=== PATIENT | female | born 1975 | race Caucasian/White ===

== ENCOUNTER 2019-04-24 07:21 | Emergency (ER) | payer OTHER ==
[~2019-04-24] VITALS: Ht 175.3 cm; Wt 111.1 kg
--- OUTSIDE RECORDS SUMMARY | 2019-04-24 07:26 | XMS REPORT | Continuity of Care Document ---
Author Organization Unknown Address Unknown Allergies There is no data. Medications There is no data. Problems There is no data. Procedures There is no data. Results There is no data. Encounters ACCT No. Visit Date/Time Discharge Status Pt. Type Provider Facility Loc./Unit Complaint [id number] 03/10/2019 10:00:00 03/10/2019 23:59:59 CLS Out[facility]
[2019-04-24] MEDS ORDERED: FLUC150T PO (07:55)
[2019-04-24] MEDS ORDERED: VALA1000 PO (07:55)
[2019-04-24] MEDS ORDERED: NYST15CR TP (07:55)
--- NOTE | 2019-04-24 07:56 | ED Integumentary General ---
General Chief Complaint: Skin/Wound Problems Stated Complaint: RASH Nursing Triage Note: Pt arrived by private vehicle with chief complaint to abdomen and chest. Pt stated that it started Wednesday on right side and moved across stomach to left side and up her chest. Ptp stated that it does not itch, it kenia cox and makes her feel like she has the flu. Pt stated she feels like her stomach is on fire. Pt did see doctor bindu before for possible poision IV on right upper abdomen, got put on steroid (unknown when she saw doctor bindu). Pt is alert, oriented and ambulatory at arrival. History of Present Illness Date Seen by Provider: Apr 24, 2019 Time Seen by Provider: 07:59 Initial Comments Patient presenting to ED for evaluation of a rash that has been getting progressively larger for the past 3 days. She says it started wednesday with a small path on her right upper abdomen. She saw her PCP, Dr. Marc and was started on steroids and has finished the course. She says that the rash feels like pins and needles and is somewhat painful but not severely painful. Palpation does not make it worse. She has felt some malaise and fatigue but no vomiting, fevers, or other systemic symptoms. The rash has spread to involve her entire abdomen and is radiating towards the flanks and lower back BL. The rash is red, raised with some bumps that resemble vesicles. She went to urgent care this AM and they told her to come to ED as they didn't know what the rash was. She is in nad with normal VS. Allergies and Home Medications Allergies Coded Allergies: Iodinated Contrast- Oral and IV Dye (Verified Allergy, Unknown, anaphylaxis, 04/24/19) docetaxel (Verified Allergy, Unknown, anaphylaxis, 04/24/19) lorazepam (Verified Allergy, Unknown, nausea and vomiting, 04/24/19) Home Medications Fluconazole 150 Mg Tablet, 150 MG PO ONCE Prescribed by: TAMIKO BOYD on 04/24/19 075 Nystatin 15 Gm Cream..g., 15 GM TP BID Prescribed by: TAMIKO BOYD on 04/24/19754 Valacyclovir HCl 1,000 Mg Tablet, 1,000 MG PO TID Prescribed by: TAMIKO BOYD on 04/24/19 0750 Patient Home Medication List Home Medication List Reviewed: Yes Review of Systems Review of Systems Constitutional: No chills, No fever; malaise Respiratory: No cough Cardiovascular: No chest pain Gastrointestinal: No abdominal pain, No nausea, No vomiting Skin: lesions; No pruritus; rash Past Atnknsk-Kuughg-Exrtnw Hx Patient Social History Recent Foreign Travel: No Contact w/Someone Who Travel: No Recent Infectious Disease Expo: No Recent Hopitalizations: No Physical Abuse: No Sexual Abuse: No Mistreated: No Fear: No Seasonal Allergies Seasonal Allergies: No Past Medical History Surgeries: Yes (Mastectomy (bilateral)) Respiratory: No Cardiac: No Neurological: No Genitourinary: No Gastrointestinal: No Musculoskeletal: No Endocrine: Yes Hypothyroidsim HEENT: No Cancer: Yes (malignant neoplasm of female breast) Breast Psychosocial: No Integumentary: No Blood Disorders: No Physical Exam Vital Signs Vital Signs - First Documented 04/24/19 07:42 Temp 98.5 Pulse 113 Resp 20 B/P (MAP) 130/96 (107) Pulse Ox 96 O2 Delivery Room Air Capillary Refill : Less Than 3 Seconds General Appearance: WD/WN, no apparent distress Cardiovascular: regular rate, rhythm, no edema Respiratory: lungs clear, normal breath sounds, no respiratory distress Gastrointestinal: non tender, soft Neurologic/Psychiatric: alert, oriented x 3 Skin: other (raised red rash that involves entire abdomen, non tender to palpation. Some vesicles present. Rash is patchy, non-confluent. ) Progress/Results/Core Measures Results/Orders My Orders Orders - TAMIKO BOYD DO Fluconazole Tablet (Ed Only) (Diflucan T (04/24/19 08:00) Vital Signs/I&O 04/24/19 07:42 Temp 98.5 Pulse 113 Resp 20 B/P (MAP) 130/96 (107) Pulse Ox 96 O2 Delivery Room Air Blood Pressure Mean: 107 Progress Progress Note : Progress Note If rash was unilateral I would say it is definitely zoster however being BL makes it more complicated. Possible that she could get immunocompromised from steroids and get BL zoster. It is not painful or confluent like a cellulitis. With this large of an area, she would be quite ill if it were cellulitic. Candidal rash is also a consideration given she was just on steroids. 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 For now I will treat both possible zoster with valacyclovir as well as possible fungal rash with a dose of Diflucan here and another dose in 3 days. I will also recommend nystatin cream. I told her if she starts getting fevers or the rash is painful to palpation IK cellulitis she may require IV antibiotics. Patient told to come back any time with worsening symptoms or other concerns she may require admission and transfer to another facility. Patient aware and agreeable with plan for discharge and verbalized understanding of the need for short-term follow-up and strict ED return precautions discussed including worsening pain, fevers, rash or other general concerns. Departure Impression Primary Impression: Dermatitis Disposition: 01 HOME, SELF-CARE Condition: Stable Departure-Patient Inst. Referrals: NILTON MARC MD (PCP/Family) Primary Care Physician Patient Instructions: Skin Rash Scripts Nystatin (Nystatin) 15 Gm Cream..g. 15 GM TP BID for 7 Days, TUBE Prov: TAMIKO BOYD DO 04/24/19 Valacyclovir HCl (Valacyclovir) 1,000 Mg Tablet 1000 MG PO TID for 7 Days, TAB Prov: TAMIKO BOYD DO 04/24/19 Fluconazole (Diflucan) 150 Mg Tablet 150 MG PO ONCE for 1 Day, #1 TAB Prov: TAMIKO BOYD DO 04/24/19 TAMIKO BOYD DO Apr 24, 2019 07:55
[2019-04-24] MEDS ORDERED: FLUCONAZOLE 150 MG TABLET (ED ONLY) PO ONE (08:00)
[2019-04-24 08:04] VITALS: BP 119/92
== END 2019-04-24 08:04 | disposition home or self-care (01) ==
LOC: EDUNIT# 07:21 → ER FS 07:23
DX: L30.9 Dermatitis, unspecified (principal); E03.9 Hypothyroidism, unspecified; Z85.3 Personal history of malignant neoplasm of breast; Z88.8 Allergy status to other drugs, medicaments and biological substances; Z91.041 Radiographic dye allergy status; Z90.13 Acquired absence of bilateral breasts and nipples
CPT/HCPCS: 99283

== ENCOUNTER → 2021-02-21 | Outpatient (CLI) | payer SELFPAY ==
[~2021-02-21] MED LIST: FLUC150T PO; NYST15CR TP; VALA10007 PO
--- NOTE | 2021-02-21 13:45 | Diagnostic Imaging Report ---
EXAMINATION: CT calcium scoring without contrast. TECHNIQUE: Multiple contiguous axial images were obtained through the chest without the use of intravenous contrast for purposes of calcium scoring. All CT scans use one or more of the following dose optimizing techniques: automated exposure control, MA and/or KvP adjustment based on a patient size and exam type, or iterative reconstruction. HISTORY: Coronary artery disease COMPARISON: None available. FINDINGS: The calculated coronary artery calcium score is 5.2. There is no edema or pneumonia. No pleural effusion. No pneumothorax. No suspicious nodules. Heart size is normal. No pericardial effusion. Aorta is normal in caliber. There is no axillary or supraclavicular lymphadenopathy. There is no mediastinal lymphadenopathy. Limited views of the upper abdomen are unremarkable. There are no suspicious osseus lesions. IMPRESSION: 1. Calculated coronary artery calcium score of 5.2, placing the patient between the 75th and 90th percentiles. Dictated by: Dictated on workstation # [id number]
== END ==
LOC: RAD FS 12:26
PROVIDERS: ATTEND Family Medicine
DX: I25.10 Atherosclerotic heart disease of native coronary artery without angina pectoris (principal); Z82.49 Family history of ischemic heart disease and other diseases of the circulatory system
CPT/HCPCS: 75571